=== PATIENT | male | born 1980 | race Caucasian/White ===

== ENCOUNTER 2018-03-07 14:11 | Emergency (ER) | payer MEDICAID ==
[2018-03-07] MEDS: HYDROCODONE/APAP (5/325) TAB PO (15:04)
[2018-03-07] MEDS: AMOXICILLIN/CLAV 875 MG TAB PO (15:04)
[2018-03-07] MEDS: TRIMETHOPRIM/SULFAMETHOX (DS) TAB PO (15:32)
[2018-03-07] MEDS: CEPHALEXIN 500 MG CAP PO (15:33)
[2018-03-07] MEDS: AMLODIPINE 10 MG TAB PO (15:34)
== END 2018-03-07 16:51 | disposition home or self-care (01) ==
LOC: FTE 16:51
DX: L03.211 Cellulitis of face (principal); I10 Essential (primary) hypertension; E11.9 Type 2 diabetes mellitus without complications; F17.210 Nicotine dependence, cigarettes, uncomplicated
CPT/HCPCS: 99283; Z7502